=== PATIENT | female | born 1945 | race Caucasian/White ===

== ENCOUNTER 2017-08-25 08:21 | Outpatient (CLI) | payer MEDICARE, OTHER ==
--- NOTE | 2017-08-25 09:06 | RAD ---
TWO VIEW LUMBAR SPINE SERIES: Indication: Prior history of L1 burst fracture. Comparison: None. FINDINGS: There is a moderate to severe compression fracture with associated dorsal angulation of L1, which pro duces focal kyphosis at the upper lumbar spine. There is a degree of retropulsion of bone, difficult to further discern on the two provided views. There is left convexity curvature of the lumbar spine. Osseous structures are demineralized with mild degenerative change. Calcifications overlie the pelvis . IMPRESSION: L1 fracture deformity with associated dorsal angulation and resultant kyphosis. There is evidence to indicate retropulsion of bone, not further assessed on the basis of the two provided views. Consider follow up imaging as indicated clinically. POS: FAUSTINO
== END 2017-08-25 08:22 | disposition home or self-care (01) ==
LOC: TBSIIMAG 08:21
PROVIDERS: ATTEND Neurological Surgery
DX: S32.011A Stable burst fracture of first lumbar vertebra, initial encounter for closed fracture (principal); M40.205 Unspecified kyphosis, thoracolumbar region
CPT/HCPCS: 72100

== ENCOUNTER 2017-10-06 09:54 | Outpatient (CLI) | payer MEDICARE, OTHER ==
--- NOTE | 2017-10-06 11:52 | RAD ---
TWO VIEWS LUMBAR SPINE: History Fall. Previous known L1 fracture. FINDINGS: AP and lateral views of the lumbar spine demonstrate approximately 60% height loss and focal kyphosis due to a compression at the L1 level. Anterolisthesis is seen involving the anterior aspect of the fractured L1 vertebra. No significant interval change is seen since the previous comparison exam fro m approximately 5-1/2 weeks earlier. No newly developed fracture is seen. IMPRESSION: Compression fracture of the L1 vertebra stable in appearance and extent of kyphosis compared to the p revious comparison radiograph. POS: FAUSTINO
== END 2017-10-06 09:55 | disposition home or self-care (01) ==
LOC: TBSIIMAG 09:54
PROVIDERS: ATTEND Neurological Surgery
DX: M54.5 Low back pain (principal); S32.019A Unspecified fracture of first lumbar vertebra, initial encounter for closed fracture
CPT/HCPCS: 72100

== ENCOUNTER 2019-06-01 10:50 | Outpatient (CLI) | payer MEDICARE, OTHER ==
--- NOTE | 2019-06-01 11:37 | RAD ---
RADIOGRAPH LUMBAR SPINE 4 VIEWS: DATE: 06/01/2019 HISTORY: 73-year-old female with chronic low back pain. Follow-up L1 burst fracture. COMPARISON: 10/06/2017 TECHNIQUE: AP view, and 3 lateral views in neutral, flexion, and extension. FINDINGS: There are 5 lumbar-type vertebrae. There is severe loss of height of L1 vertebral body, associated wi th focal kyphosis at T12-L1, and subsequent exaggerated lordosis of rest of lumbar spine. The rest of the vertebral body heights are maintained. The T12-L1 disc space is distorted due to the collapsed L1 vertebra. The rest of the disc spaces are maintained. No significant interval change is detected on the AP and lateral views. There is no difference in positioning between the extension and neutral views (patient is unable to extend much at all). No instability is seen on the flexion view. IMPRESSION: 1) compression fracture or burst fracture of L1 with severe collapse. 2) no interval change.
== END 2019-06-01 10:51 | disposition home or self-care (01) ==
LOC: TBSIIMAG 10:50
PROVIDERS: ATTEND Neurological Surgery
DX: S32.011D Stable burst fracture of first lumbar vertebra, subsequent encounter for fracture with routine healing (principal)
CPT/HCPCS: 72110